=== PATIENT | female | born 1980 | race Caucasian/White ===

== ENCOUNTER 2020-09-18 07:56 | Day surgery (SDC) | payer OTHER, SELFPAY ==
[2020-09-13 07:32] LABS: Hematocrit 43.5 % (37-47); Hemoglobin 14.4 g/dL (12.0-15.0); Mean Corp Hgb Conc 33.1 g/dL (32-36); Mean Corpuscular Hgb 31.3 pg (27.0-32.0); Mean Corpuscular Volume 94.6 fL (81-99); Mean Platelet Vol. 8.5 fl (6.2-12.0); Platelet Count 321 K/mm3 (150-450); RBC Distribution Width CV 12.5 % (11.6-14.6); RBC Distribution Width SD 43.2 fl (35.1-43.9); White Blood Count 7.6 K/mm3 (4.4-11.0)
[2020-09-13 07:50] LABS: Internal QC Validated? YES +Cl - CLEAR BKGD; Pregnancy, Serum, hCG Quali. NEGATIVE Negative
[2020-09-13 08:27] LABS: International Normalized Ratio 0.9; Partial Thromboplast Time 30.5 Seconds (24.1-36.2); Prothrombin Time (Protime)PT. 11.9 SECONDS (11.7-14.9)
--- NOTE | 2020-09-17 13:07 | PCM.HP.BLA ---
History and Physical Date of Admission: 09/18/20 Surgical History and Physical Monisha Isabel, a 39 year old female 2 0 0 0 2, presents for Dx H/S, IUD Removal and Replace IUD; possible bilateral salpingectomy on September 18, 2020 at 10:00. -- IUD Insertion/Removal; Desires Permanent Sterilization -- Time for Mirena to be removed and wishes new IUD inserted. Unable to do in the office as it is impacted. Also desires permanent sterilization. She has considered this form of BC for quite some time. MEDICATIONS HISTORY: Current medications prescribed by our practice are: 1. cephalexin 500 mg capsule, One pill by mouth twice a day Patient is also takin. Mirena 20 mcg/24 hr (5 years) intrauterine device, As Directed ALLERGIES: Ortho evra patch, Gen'l rash on trunk, Ortho Evra and Hives and/or rash Infections - Chicken pox and COVID Illnesses - seasonal allergies Accidents - no injuries of consequence Hospitalizations - Childbirth and see surgery kidney stones; Review of Systems: GENERAL - Denies fever, or chills SKIN - Denies skin changes EYES - Denies visual changes EARS - Denies difficulty hearing NOSE - Denies nasal congestion or bleeding MOUTH - Denies sore throat or difficulty swallowing NECK - Denies pain or swelling RESPIRATORY - Denies shortness of breath or wheezing CARDIOVASCULAR - Denies palpitations or chest pain GASTROINTESTINAL - Denies nausea, vomiting, diarrhea, constipation GENITOURINARY - Denies dysuria, frequency of urination, incontinence of urine MUSCULOSKELETAL - Denies joint or muscle pain NEUROLOGICAL - Denies localized numbness or weakness PSYCHIATRIC - Denies depression or anxiety ENDOCRINE - Denies heat or cold intolerance, weight loss or gain HEMATO-IMMUNOLOGIC - Denies excesive bleeding with cuts SOCIAL HISTORY: Alcohol Use - denies drinking Smoking - denies smoking Diet - balanced Diet Lifestyle - active lifestyle Exercise - active Seat Belt Use - always Employer - [employer] Job Description - telecommunications project manager Illicit Drug Use - denies use of street drugs Sexual Activity - Residence - condo Hours Worked - 40 hours per week Spouse-Sig Other Name - Shamir Spouse-Sig Other Occupation - [employer] Spouse-Sig Other Phone No - [phone] Children Name(s) - Greg Isabel, Ammon Barksdale Chalo 10/2006 Control - Mirena IUD FAMILY HISTORY: Maternal history of pancreatic cancer. Paternal history of DM II. Mother: adenomyosis. MENSTRUAL HISTORY: LMP Known?- Mirena IUDAmount/Duration - 1-2 days spotting, Regularity - Every 3 months, Frequency - 28 days, LMP - 05/29/20, Age Onset Menarche - 12 PAST PREGNANCIES: Total Pregnancies - 2; Full Term Pregnancies - 2; Premature - 0; Abortions, Induced - 0; Abortions, Spontaneous - 0; Ectopics - 0; Multiple Births - 0; Living Children - 2 SURGICAL HISTORY: 1. 10/31/2006 ; Greg Kohler M.D. - Prior 2. 04/14/2000 WISDOM TEETH ; oral surgeon's office - 3. 09/30/2004 ; Greg Kohler M.D. - failure to progress PHYSICAL EXAM BP- 126/88 Sitting, Right arm, large cuff Weight- 239.30398 lbs Height- 63.50 inch BMI:41.83 CONSTITUTIONAL - NAD, well nourished, and well developed SKIN - No rash, lesions, or ulcers HEENT - Normocephalic, PERRLA, EOMI NECK - No nodes, no nuchal rigidity and thyroid normal size and texture LYMPH NODES - Palpation of lymph nodes in neck and groins within normal limits LUNGS - CTA x2 without wheezes, crackles or rales CARDIAC - Regular rate and rhythm without rubs, murmurs, or gallops BREAST - No dominant masses, no tenderness, no axillary adenopathy, no nipple discharge, no skin changes ABDOMEN - Without hepatosplenomegaly, distention, masses, rebound, or guarding; normal bowel sounds; no hernias EXTREMITIES - No edema or calf tenderness NEUROLOGICAL - Cranial nerves II-XII grossly intact PSYCHIATRIC - A and O to time, place, person, mood and affect External Genitial Vagina - non-tender without lesions Urethra/Urethral Meatus - non-tender Bladder - non-tender Vagina - vaginal masters are pink and moist without loss of rugae and no evidence of atropy Cervix - without cervical motion tenderness and has normal size and features without evident lesions Uterus - 5-6 cm in size, mobile and nontender Adnexa - clear without massess or tenderness ASSESSMENT/PLAN: Desires Permanent Sterilization and Replacement of IUD. Discussed RBAs and all questions answered. Plan Possible L/S Matt Salpingectomy, IUD Removal and Insertion with H/S.
[2020-09-18] VITALS (8 sets, daily range): BP systolic 111–128; BP diastolic 78–94; PULSE 61–81; RESP 14–18; TEMP 35.8–37.1; O2SAT 94–100; BMI 39.9
--- NOTE | 2020-09-18 | FALS_PTH ---
PATIENT: RUSSELL HUGHES LOC: [facility] [place] U#:[id number] AGE/SX: 39/F ROOM: RE09/18/[address]: Dr. Greg Kohler MD : 1980 BED: DIS: 09/18/2020 SPEC #: [id number] RECD: 09/19/20 06:20 STATUS: MEHNAZ WELSH #: [id number] CONSTANTINE: 09/18/20 00:[address]: Greg Kohler DEPT: SURGICAL PATHOLOGY RECD BY: Adam Ferrell ENTERED: 09/19/20 08:29 SP TYPE: FALL TUBES OTHR DR: Dr. Robert Wren MD Tissues: Fallopian tube Procedures: Surgery Specimen Level II HEADER OPERATION: Diagnostic hysteroscopy, IUD removal and insertion PRE-OP DIAGNOSIS: Sterilization TISSUE SUBMITTED: Bilateral fallopian tubes MICROSCOPIC DIAGNOSIS Right and left fallopian tubes, bilateral salpingectomies: Bilateral fallopian tubes with no pathologic change. AM:emma 09/20/2020 MICROSCOPIC DESCRIPTION Slides are reviewed. GROSS DESCRIPTION Received in fixative is one container labeled with the patient's name and designated bilateral fallopian tubes. The specimen consists of bilateral fallopian tubes including fimbrial ends measuring 6 cm in length and 0.5 cm in diameter and 5.5 cm in length and 0.5 cm in diameter. The fallopian tubes are not identified as right or left. Sections reveal unremarkable cut surfaces. Electronic Assembly sections are submitted in two cassettes with each cassette containing one fallopian tube. / DANISHA:emma 09/19/20 TC:5 CPT: 82187 x2
[2020-09-18 08:30] LABS: Internal QC Validated? YES +Cl - CLEAR BKGD; Pregnancy, Urine Negative Negative
[2020-09-18] MEDS: Lactated Ringers 1,000 ML 100 ML IV ×2 (08:58→11:00)
--- NOTE | 2020-09-18 09:25 | OP.PCM_ITS ---
Problems Associated Problem List Diagnoses (1) Encounter for female sterilization procedure: (2) Encounter for IUD insertion: (3) IUD strings lost: Report of Operation Date of Procedure: 09/18/20 Pre-Operative Diagnosis: Desires Permanent Sterilization, Impacted IUD Post-Operative Diagnosis: Desires Permanent Sterilization, Impacted IUD, Adhesions Surgery/Procedure Performed:: Diagnostic Hysteroscopy, Mirena IUD Removal, Liletta IUD Insertion, Bilateral Laparoscopic Salpingectomy; Lysis of Adhesions Description of Surgical Findings:: 8 cm endometrial cavity with Mirena IUD pres ent but twisted in the uterus. Dense adhesions of the omentum to the anterior abdominal wall. Normal pelvis otherwise. Surgeon: Greg Kohler Type of Anesthesia: General (Endotracheal) Anesthesiologist: Ramon Jorge Specimen's removed: Mirena IUD, bilateral fallopian tubes Estimated Blood Loss (mL): Minimal Fluids Replaced: Crystalloid Description of Procedure: Surgeon: Greg Kohler MD, FACOG Indications: This is a 39 year old patient who has the above diagnosis. She has considered sterilization for quite some time. She has an Mirena IUD in place that we were unable to remove in the office. She desires this to be removed and a new Liletta IUD be placed. She is aware of the permanent nature of the procedure of a tubal, the failure rate of 1-2%, and the availability of other nonpermanent control options. All questions were answered to consider the patient well-informed. Procedure: The patient was taken to the operating room where after induction of general anesthesia, she was placed in the dorsolithotomy position and prepped and draped in the usual sterile fashion. The bladder was drained of approximately 100 cc of clear yellow urine with a catheter. Anterior cervix was grasped with the tenaculum and dilated to about 4-5 mm. A 3 mm hysteroscope was placed in the uterus of the above findings were noted. The Mirena IUD was identified and brought through the cervix with a grasper. In the course of the procedure approximately 100 cc o saline distending media was used and virtually all of this was recovered. Conn cannula was placed and attention was turned toward the laparoscopic portion of the procedure. Approximately 20 cc of half percent ropivacaine was injected subumbilically, suprapubically and midway between. A 5 mm bladeless trocar was placed subumbilically and intraperitoneal placement confirmed. After CO2 insufflation was complete, a 5 mm bladeless trocar was introduced suprapubically. The above findings were noted. A 5 mm bladeless port was then placed in the right lateral area approximately 10 cm from the midline between these 2 ports. Adhesions were taken down sharply and with the Enseal device. Each fallopian tube was gustavo ntified to its fimbriated end and an Enseal device was used to divide the mesosalpinx to the uterus. Tubes were removed through the lower 5 mm port. The peritoneal cavity and upper abdomen were examined and noted to be normal. Pelvis was copiously irrigated with saline and hemostasis was noted. Photographs were taken. Laparoscopic instruments with as much CO2 gas as possible were removed and incisions were closed with interrupted 4-0 Monocryl suture. Steri-Strips were placed across the incisions. Vaginal instruments were removed. The Liletta was then placed in the usual fashion leaving approximately a 1 to 2 cm segment of string visualized at the cervix. The patient tolerated the procedure well was taken to recovery room in satisfactory condition and sponge instrument and needle counts were all reportedly correct. Estimated blood loss for the case was minimal. There were no apparent complications of the surgery. Specimens to pathology was bilateral tubes. Mirena IUD was discarded. Grafts/Implants Used: Liletta IUD Complications None Admit VTE Documentation VTE Present on Admission: Yes VTE Mechan Device Prophylaxis: SCD's
--- NOTE | 2020-09-18 09:35 | PCM.DC ---
Discharge Instructions Diet Discharge Diet: No restrictions Activity Discharge Activity: May Not Drive (While taking narcotic pain medication) Lifting Restrictions: 25 pounds for 2 weeks Additional Activity Instructions:: Ambulate often the next week after surgery. Nothing in the vagina for 5 days. Dressing / Incision Call your doctor if your incision/area has: Continuous Slow Oozing, Sudden Increased Bleeding, Increased Pain/ Swelling, Increased Redness and Foul Smelling Discharge Call your doctor if you observe: Fever of 101 or Higher, Inability to urinate, Inability to have a bowel movement and Using more than 1 pad per hour Additional Dressing/Incision Instructions:: Okay to remove Steri-Strips in 1 to 2 weeks if they have not fallen off by then. Okay to shower or take a tub bath over Steri-Strips and pat dry. Follow Up Care Please Follow Up With: Greg Kohler MD When: 4 weeks for postop check and IUD check Test Results: Test results from this visit will be discussed in further detail at your follow-up appointment, if applicable. Discharge Plan Admission Primary Reason for Your Visit: IUD Removal, IUD Insertion, Bilateral Tubal Removal Attending Provider: Greg Kohler Primary Care Provider: Robert Wren Discharge Orders/Prescriptions Prescriptions: New oxycodone 5 mg capsule 5 mg PO Q6H PRN (Reason: pain) 7 Days Qty: 7 RF: 0 Continued fexofenadine [Taryn Allergy] 180 mg Tablet 180 mg PO DAILY PRN (Reason: allergies) RF: 0 apple cider vinegar 600 mg Capsule 600 mg PO PRN PRN (Reason: supplement) RF: 0 Referrals / Follow Up: Robert Wren MD [Primary Care Provider] - Disposition Disposition (needs filled in before D/C Order can be placed): Home, self care
[2020-09-18] MEDS: Cefotetan 2 GM in 0.9% NS 100 ML IV (09:54)
[2020-09-18] MEDS: Ropivacaine 0.5% 30 ML Vial (10:14)
[2020-09-18] MEDS: Levonorgestrel IUD (Liletta) 1 EACH INTRA-UTER (11:05)
[2020-09-18] MEDS: oxyCODONE 5 MG Tablet PO (12:45)
== END 2020-09-18 13:53 | disposition home or self-care (01) ==
LOC: SDC 07:57 → AC 07:57
PROVIDERS: Anesthesiology; PCP Family Medicine; Referring Provider Obstetrics & Gynecology; Visit Provider Obstetrics & Gynecology
PROC: 0UDB8ZZ Extraction of Endometrium, Via Natural or Artificial Opening Endoscopic (ICD-10-PCS; CPT 58558; principal; 2020-09-18 09:25)
PROC: (CPT 58661; 2020-09-18 09:25)
DX: Z30.2 Encounter for sterilization (principal); T83.32XA Displacement of intrauterine contraceptive device, initial encounter
CPT/HCPCS: 58300; 58301; 58661; 36415; 81025; 84703; 85027; 85610; 85730; 86850; 86900; 86901; 88302; J7120; C1760; J2405

== ENCOUNTER 2024-01-14 09:27 | Outpatient (CLI) | payer OTHER, SELFPAY ==
[2024-01-14 09:54] VITALS: BP 143/93; PULSE 103; RESP 16; TEMP 36.7; O2SAT 99; BMI 32.8
[2024-01-14 10:33] VITALS: BP 136/87; PULSE 89; RESP 16; TEMP 36.6; O2SAT 99
[2024-01-14 11:33] VITALS: BP 127/85; PULSE 88; RESP 16; TEMP 36.5; O2SAT 99
[2024-01-14 12:20] VITALS: BP 130/75; PULSE 85; RESP 16; TEMP 36.6; O2SAT 99
== END 2024-01-14 23:59 | disposition home or self-care (01) ==
LOC: MEDOUTP 09:28
PROVIDERS: PCP Physician Assistant; Referring Provider Obstetrics & Gynecology; Visit Provider Obstetrics & Gynecology
DX: D62 Acute posthemorrhagic anemia (principal)
CPT/HCPCS: 36415; 36430; 86850; 86900; 86901; 86920; 86922; J7040; P9016; A4216

== ENCOUNTER 2024-01-16 05:22 | Day surgery (SDC) | payer OTHER, SELFPAY ==
[2024-01-09 07:10] LABS: Hemoglobin 7.8 g/dL (12.0-15.0); Mean Corpuscular Hgb 25.1 pg (27.0-32.0); Mean Corpuscular Volume 83.6 fL (81-99); Mean Platelet Vol. 8.6 fl (6.2-12.0); Platelet Count 616 K/mm3 (150-450); RBC Distribution Width CV 14.1 % (11.6-14.6); RBC Distribution Width SD 42.8 fl (35.1-43.9); Red Blood Count 3.11 M/mm3 (4.2-5.4); White Blood Count 9.2 K/mm3 (4.4-11.0)
[2024-01-09 08:14] LABS: Anion Gap 7 (5-15); BUN 19 mg/dL (7-18); Calcium,Total 8.8 mg/dL (8.5-10.1); Chloride 107 mmol/L (98-107); EST Glomerular Filtration Rate 64 mL/min (>60); Est Glom Filt Rate - Afr Amer 78 mL/min (>60); Glucose 100 mg/dL (74-106); Sodium Level 136 mmol/L (136-145)
[2024-01-09 08:19] LABS: Magnesium 1.8 mg/dL (1.6-2.6)
--- NOTE | 2024-01-15 13:07 | HP.PCM.OB_ITS ---
History and Physical Date of Admission: 01/16/24 This is a virtual visit using [employer] Video Visit. It required patient- provider interaction for the medical decision making as documented below. I have communicated my name and active licensure. The patient's identity and physical location were verified at the time of this visit. Either the patient or their legal reimbursement representative has been informed of the risks and benefits of -- and alternatives to -- treatment through a remote evaluation and consents to proceed with the evaluation remotely. Pre-Op History and Physical HPI: The patient is a 43 year old female presenting for pre-operative visit. She is scheduled for TLH, Cystoscopy, for AUB, adenomyosis on 01/15/24. Bleeding so heavy last few days that was bled through three pairs of pants. 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 Pt denies CP, SOB, dizziness. Procedure discussed along with risks, benefits and complications. Other alternatives discussed for management. Consent form signed? To be signed when in office on 12/29/23 PAST MEDICAL HISTORY PAST MEDICAL HISTORY Diagnosis Date ? Allergic rhinitis, cause unspecified also gets wheezy during winter and with pregnancies ? Other and unspecified hyperlipidemia PAST SURGICAL HISTORY PAST SURGICAL HISTORY Procedure Laterality Date ? DELIVERY ONLY 2004,2006 ? INSERTION OF IUD [id number] ? IUD REMOVAL 2020 removed second iud 2021 inserted new one ? REMOVAL OF FALLOPIAN TUBE Bilateral CURRENT MEDICATIONS Current Outpatient Medications Medication Sig Dispense Refill ? norgestimate 0.25 mg-ethinyl estradiol 35 mcg (SPRINTEC) 0.25-35 mg-mcg per tablet Take one active pill every 8 hours until bleeding stops (usually within 48hrs), then one pill every 12 hrs for 2 days, then one pill daily until surgery. 56 tablet 0 ? ondansetron (ZOFRAN) 4 mg tablet Take 1 tablet by mouth every 8 hours as needed for nausea/vomiting. 15 tablet 0 ? Phentermine HCl 37.5 mg tablet Take 1 tablet by mouth daily before breakfast for 90 days. Do not start before November 22, 2023. 90 tablet 0 ? topiramate (TOPAMAX) 50 mg tablet Take 1 tablet by mouth once daily. 90 tablet 3 ? metFORMIN ER (GLUCOPHAGE XR) 750 mg 24 hr tablet Take 2 tablets by mouth daily with dinner. 180 tablet 2 ? vit B complex no.12/niacin,B3, (VITAMIN B COMPLEX NO.12-NIACIN ORAL) Take by mouth. ? cholecalciferol, Vitamin D3, (VITAMIN D3) 1,250 mcg (50,000 unit) cap capsule Take 1 capsule by mouth one time a week. 4 capsule 2 ? albuterol HFA (PROVENTIL HFA, VENTOLIN HFA) 90 mcg/actuation inhaler Inhale 2 Puffs as instructed every 4 hours as needed (for cough, wheezing, chest tightness or shortness of breath. Use with a spacer.). 1 Each 1 ? fexofenadine HCl (DEVYN ORAL) Take by mouth once daily. No current facility-administered medications for this visit. ALLERGIES: Adhesive Tape-Silicones and Iodine PERSONAL HISTORY: SOCIAL HISTORY Social History Tobacco Use ? Smoking status: Never Passive exposure: Never ? Smokeless tobacco: Never Vaping Use ? Vaping status: Never Used Substance Use Topics ? Alcohol use: Yes Comment: social ? Drug use: No FAMILY HISTORY: FAMILY HISTORY FAMILY HISTORY Problem Relation Age of Onset ? Lipids Father ? other (diverticulitis [Other]) Sister ? other (pancreatic CA [Other]) Maternal Grandmother age late 60's ? Diabetes Paternal Grandmother ? Hypertension Paternal Grandfather ? Ischemic Heart Disease Paternal Grandfather age early 50's ? other (leukemia [Other]) Paternal Grandfather age late 40's ? Ischemic Heart Disease Paternal Uncle age early 50's REVIEW OF SYMPTOMS: negative except as noted above PHYSICAL EXAMINATION: VIDEO EXAM: (if completed, performed via video enabled technology) GENERAL: alert and appropriate, in no distress, well-hydrated, well nourished, and happy, smiling, interactive ASSESSMENT: (N93.9) Abnormal uterine bleeding (AUB) (primary encounter diagnosis) (N80.03) Adenomyosis (D25.1) Intramural leiomyoma of uterus PLAN: Total laparoscopic hysterectomy, cystoscopy scheduled for 01/16/24 Pt has been counseled on risks/benefits and alternatives of surgery including but not limited to anesthesia, bleeding, infection, injury to pelvic structures including bowel, bladder, ureters and vessels. Pt wishes to proceed with surgery at this time. Risk of transfusion reviewed. Pre and post op instructions reviewed Will sign consent at office visit on 12/29/23. Continue OCPs taper until surgery to help with AUB There are no Patient Instructions on file for this visit. I spent a total of 30 minutes on the date of the service which included preparing to see the patient, [id number] patient care, completing clinical documentation, obtaining and/or reviewing separately obtained history, performing a medically appropriate examination, and counseling and educating the patient/family/caregiver. Anika Galeano MD
[2024-01-16] VITALS (12 sets, daily range): BP systolic 84–129; BP diastolic 62–90; PULSE 73–93; RESP 16–18; TEMP 36.1–37.1; O2SAT 94–100; BMI 33.7
[2024-01-16 05:52] LABS: Internal QC Validated? YES +Cl - CLEAR BKGD; Pregnancy, Urine Negative Negative
[2024-01-16] MEDS: dexAMETHasone 4 MG/ML Vial 8 MG IV (06:28)
[2024-01-16] MEDS: Magnesium 2 GM for ERAS IV (06:29)
[2024-01-16] MEDS: Lactated Ringers 1,000 ML 40 ML IV (06:33)
[2024-01-16] MEDS: Celecoxib 200 MG Capsule 400 MG PO (06:34)
[2024-01-16] MEDS: Enoxaparin 40 MG/0.4 ML Syringe SC (06:34)
[2024-01-16] MEDS: Acetaminophen 500 MG Tablet 1000 MG PO ×2 (06:35→12:56)
[2024-01-16] MEDS: Phenazopyridine 95 MG Tablet 190 MG PO (06:35)
[2024-01-16] MEDS: Scopolamine 1mg/72hr Patch 1 PATCH TD (06:35)
[2024-01-16] MEDS: Gabapentin 600 MG Tablet PO (06:36)
--- NOTE | 2024-01-16 07:12 | PRE.ANES_ITS ---
ASA Classification* ASA Classification ASA Classification: 3 Assessment & Plan Anesthesia* Anesthesia Assessment Anesthesia Assessment: Discussed sedation and/or anesthesia options, risks, benefits, and alternatives with patient/parents/legal guardian/POA. Questions invited. The patient/parents/legal guardian/POA seems to understand and agrees to proceed with anesthesia plan. Reviewed the physical assessment, medical history, allergy history and patient home medications list prior to surgery/procedure/anesthetic and documented any changes. Performed airway and anesthesia risk assessments. Anesthesia Type Anesthesia Type: General Anesthesia Focused Assessment* Temperature: 98.7 F Pulse Rate: 93 Blood Pressure: 121/87 Respiratory Rate: 16 Pulse Ox: 100 Airway Assessment Mouth opens: >3 cm Mallampati Score: II Focused Labs Anesthesia Preop lab: CBC WBC 9.2 K/mm3 (4.4-11.0) 01/09/24 06:40 RBC 3.11 M/mm3 (4.2-5.4) L 01/09/24 06:40 Hgb 7.8 g/dL (12.0-15.0) L 01/09/24 06:40 Hct 26.0 % (37-47) L 01/09/24 06:40 Plt Count 616 K/mm3 (150-450) H 01/09/24 06:40 CHEMISTRY Potassium 4.0 mmol/L (3.5-5.1) 01/09/24 06:40 Sodium 136 mmol/L (136-145) 01/09/24 06:40 Magnesium 1.8 mg/dL (1.6-2.6) 01/09/24 06:39 BUN 19 mg/dL (7-18) H 01/09/24 06:40 Creatinine 1.00 mg/dL (0.55-1.02) 01/09/24 06:40 Glucose 100 mg/dL (74-106) 01/09/24 06:40 COAG PT 11.9 SECONDS (11.7-14.9) 09/13/20 07:18 Urine Test Negative Negative 01/16/24 05:42 Pre-Assessment Diagnosis/Proposed Procedure Planned Operative Procedure(s): ERAS, Hysterectomy, TLH, Cystoscopy Anesthesia History Anesthesia History - product managent intern: Anesthesia History - product managent intern Hx Hospitalization No 01/07/24 13:23 Any Problems With Anesthesia No 01/07/24 13:23 Cholinesterase deficiency No 01/07/24 13:23 You/Your Family Experience No 01/07/24 13:23 fever (hyperthermia) with Relationship Recent Exposure to Contagious No 01/16/24 06:04 Disease Does patient have nerve No 01/07/24 13:23 stimulator Patient instructed to have device shut off --Does patient have Pacemaker No 01/16/24 06:50 or ICD? When Was Last Pacemaker Check QUESTION #4 FULL TEXT: You/Your Family Experience fever (hyperthermia) with Anesthesia Last Oral Intake Last Oral intake: Last Oral Intake NPO since 19:00 01/16/24 06:50 Meds taken in AM with sips of No 01/16/24 06:50 water? Meds patient instructed to take am of surgery PONV PONV - product managent intern: PONV - product managent intern Female Yes 01/07/24 13:23 HX of Motion Sickness Yes 01/07/24 13:23 HX of N/V After Surgery Yes 01/07/24 13:23 Non-Smoker Yes 01/07/24 13:23 Duration of Surgery greater Yes 01/07/24 13:23 than 60 minutes Number of Risk Factors 5 01/07/24 13:23 PONV Score Severe Risk 01/07/24 13:23 Height & Weight Height & Weight: Anesthesia: Height & Weight Height 5 ft 4 in 01/16/24 06:04 Weight: 89 kg 01/16/24 06:04 Body Mass Index (BMI) 33.7 01/16/24 06:50 Respiratory Assessment Respiratory Assessment - product managent intern: Respiratory Tract Infection Hx - product managent intern Hx Respiratory Tract Infection No 01/07/24 13:23 STOP Sleep Apnea STOP Sleep Apnea - product managent intern: STOP Sleep Apnea - product managent intern Hx Hypertension No 01/14/24 09:54 Hx Sleep Apnea No: wears night otf mouth 01/07/24 13:23 piece CPAP BIPAP Do you snore loudly (louder No 01/07/24 13:23 than talking or can be heard Do you often feel tired/ No 01/07/24 13:23 fatigued/ sleepy during daytime? Has anyone observed you stop No 01/07/24 13:23 breathing during sleep? STOP Results Negative 01/07/24 13:23 QUESTION #5 FULL TEXT : Do you snore loudly (louder than talking or can be heard through closed doors)? Tobacco Use History Tobacco Use History - product managent intern: Tobacco Use History - product managent intern Tobacco Use Smoking Status Never smoker 01/07/24 13:23 Hx Tobacco Use No 01/07/24 13:23 Years Smoking Packs Smoked per Day Smoking Cessation Date was within the last 15 years Hx Smoking Cessation Date Hx Smoking Cessation Counseling Hematologic Medial History Hematologic Hx - product managent intern: Hematologic Medical Hx - communication instructor Hx of Blood Transfusion No 01/07/24 13:23 Hx of Transfusion in last 3 No 01/07/24 13:23 Months Date of Last Transfusion (if within last 3 months) Ever experience any problems No 01/07/24 13:23 with transfusion(s)? Specify any problems Hx of Preganancy in last 3 No 01/07/24 13:23 Months Nurse Filling Out Transfusion VCHRISTIN 01/07/24 13:23 & Questions: Date: 01/07/24 01/07/24 13:23 Time: 13:24 01/07/24 13:23 Patient unable to answer at this time (ie. confused, unrespo /Reproduction History /Reproductive History - product managent intern: /Reproductive Hx- product managent intern Hx Now No 01/07/24 13:23 Gestational Age (in weeks): EDC: Hx Hx Para Hx Section SAB No 01/07/24 13:23 Active Medications Active Medications: Current Medications Generic Name Dose Route Start Last Admin Trade Name Freq PRN Reason Stop Dose Admin Acetaminophen 1,000 mg 01/16/24 07:30 01/16/24 06:35 Acetaminophen 500 Mg Tablet PO 01/16/24 07:31 1,000 mg PREOP ONE Administration Celecoxib 400 mg 01/16/24 07:30 01/16/24 06:34 Celecoxib 200 Mg Capsule PO 01/16/24 07:31 400 mg X1 ONE Administration Dexamethasone Sodium Phosphate 8 mg 01/16/24 07:30 01/16/24 06:28 Dexamethasone 4 Mg/Ml Vial IV 01/16/24 07:31 8 mg X1 ONE Administration Enoxaparin Sodium 40 mg 01/16/24 07:30 01/16/24 06:34 Enoxaparin 40 Mg/0.4 Ml Syringe SC 01/16/24 07:31 40 mg X1 ONE Administration Gabapentin 600 mg 01/16/24 07:30 01/16/24 06:36 Gabapentin 600 Mg Tablet PO 01/16/24 07:31 600 mg PREOP ONE Administration Lactated Ringer's 1,000 mls @ 40 mls/hr 01/16/24 07:30 01/16/24 06:33 IV 40 mls/hr .Q25H ISAIAH Administration Cefazolin Sodium 2 gm/ Sodium 110 mls @ 150 mls/hr 01/16/24 07:30 Chloride IV 01/16/24 08:13 PREOP ONE Lactated Ringer's 1,000 mls @ 70 mls/hr 01/16/24 07:30 IV .[id number] ISAIAH Magnesium Sulfate 2 gm/ 104 mls @ 208 mls/hr 01/16/24 07:30 01/16/24 06:29 Dextrose IV 01/16/24 07:59 208 mls/hr X1 ONE Administration Insulin Human Lispro 0 unit 01/16/24 07:30 Insulin Lispro 100 Unit/Ml Insuln.Pen SC 01/16/24 18:00 Q4H PRN PRN BG >/= 180, SEE PROTOCOL Protocol Ondansetron HCl 4 mg 01/16/24 07:30 Ondansetron 4 Mg/2 Ml Vial IV 01/16/24 07:31 X1 ONE Phenazopyridine HCl 190 mg 01/16/24 07:30 01/16/24 06:35 Phenazopyridine 95 Mg Tablet PO 01/16/24 07:31 190 mg X1 ONE Administration Scopolamine HBr 1 patch 01/16/24 07:30 01/16/24 06:35 Scopolamine 1mg/72hr Patch TD 01/16/24 07:31 1 patch X1 ONE Administration PFSH Medical History Kidney stone Wears glasses Alcohol use Non-smoker Shortness of breath on exertion Home Medications ?Medication ?Instructions ?Recorded ?Last Taken ?Type fexofenadine 180 mg tablet 180 mg PO DAILY allergies 09/13/20 Unknown History (Taryn Allergy) cyanocobalamin (vitamin B-12) 1,500 mcg PO .QWEEKLY 01/07/24 Unknown History 1,000 mcg tablet (Vitamin B-12) ergocalciferol (vitamin D2) 1,250 1,250 mcg PO QWEEK 01/07/24 Unknown History mcg (50,000 unit) capsule (Vitamin D2) metformin 750 mg tablet,extended 1,500 mg PO QPM 01/07/24 Unknown History release 24 hr norgestimate 0.25 mg-ethinyl 1 tab PO DAILY 01/07/24 Unknown History estradiol 35 mcg tablet (Freda) phentermine 37.5 mg tablet 37.5 mg PO DAILY 01/07/24 Unknown History topiramate 50 mg tablet 50 mg PO DAILY 01/07/24 Unknown History Allergy/AdvReac Type Severity Reaction Status Date / Time iodine Allergy Severe RASH Verified 01/14/24 10:07 adhesive tape Allergy Rash Verified 01/14/24 10:07 Surgical History History of hysteroscopy History of Social History Smoking Status: Never smoker Review of Systems (Anesthesia) ROS Narrative System reviewed and no additional complaints, except as documented.
[2024-01-16] MEDS: Cefazolin 2 GM in 0.9% Normal Saline (100mL Bag) 100 ML IV (07:30)
--- NOTE | 2024-01-16 07:30 | HYST_PTH ---
PATIENT: RUSSELL HUGHES LOC: [facility] [place] U#:[id number] AGE/SX: 43/F ROOM: RE01/16/[address]: Dr. Anika Galeano, MDDOB: 1980 BED: DIS: 01/16/2024 SPEC #: [id number] RECD: 01/16/24 10:05 STATUS: MEHNAZ BLAISE #: [id number] CONSTANTINE: 01/16/24 07:[address]: Anika Galeano DEPT: SURGICAL PATHOLOGY RECD BY: Jeimy Hawk ENTERED: 01/16/24 11:25 SP TYPE: HYSTERECT OTHR DR: JYOTI Kuhn Tissues: Uterus, NOS Procedures: Surgery Specimen Level V HEADER OPERATION: Hysterectomy PRE-OP DIAGNOSIS: Abnormal uterine bleeding, adenomyosis, intramural leiomyoma of uterus TISSUE SUBMITTED: Uterus and cervix MICROSCOPIC DIAGNOSIS Uterus and cervix, hysterectomy: Cervix - Chronic inflammation Endometrium - Proliferative endometrium Myometrium - Submucosal, intramural and subserosal leiomyomas (largest measuring 3.0cm in greatest dimension). - Focal superficial adenomyosis. SJ/ 01/19/2024 MICROSCOPIC DESCRIPTION Slides are reviewed. GROSS DESCRIPTION Received in fixative is one container labeled with the patient's name and designated uterus, cervix. The specimen consists of a hysterectomy specimen consisting of uterus and cervix. The uterus with cervix weighs 110 gm and measures 9.5 x 7.0 x 4.5 cm. The serosal surface is bloom glistening. The ectocervical mucosa is unremarkable. The external os is circular in contour. The endocervical canal measures 3.5 cm in length and the endocervical mucosa is bloom glistening unremarkable. The triangular endometrial cavity measures 5.5 cm in length and 2.0 cm in width. The endometrium is bloom, glistening without any mass lesions and measures 0.2 cm in thickness. Sections of the uterine wall reveal multiple intramural, submucosal and subserosal nodular masses. The largest mass measures 3.0cm in greatest dimension. Sections reveal two larger nodular masses that reveal focal area of hemorrhage. Area of necrosis or cystic degeneration are not seen. Uterine wall measures up to 2.0cm in thickness. It Risk Advisor sections are submitted in nine cassettes as follows: 1 - anterior cervix, 2 - posterior cervix, 3 & 4 - anterior uterine wall, 5 & 6 - posterior uterine wall, 7- largest nodular mass, 8- second largest nodular mass, 9- smaller nodular masses SJ:mr 01/16/2024 TC:1 CPT: 00493
[2024-01-16 08:46] LABS: Bedside Glucose 78 mg/dL (74-106)
[2024-01-16] MEDS: Bupivacaine Mpf 0.5% 30 ML VIAL (09:00)
--- NOTE | 2024-01-16 09:31 | OP.PCM_ITS ---
Report of Operation Date of Procedure: 01/16/24 Pre-Operative Diagnosis: AUB, Dysmenorrhea, adenomyosis, acute blood loss anemia Post-Operative Diagnosis: same, endometriosis Surgery/Procedure Performed:: TLH, Cystoscopy Description of Surgical Findings:: multiple endometriotic implants noted on peritoneum Surgeon: Anika Galeano production wood craftsman: Marivel Gibson production wood craftsman: Yesi Martinez Type of Anesthesia: General and Local Special Medications: 0.5% marcaine Specimen's removed: uterus, cervix Estimated Blood Loss (mL): 25cc Fluids Replaced: 1000cc Description of Procedure: Patient take to OR and prepped and draped in usual sterile fashion in dorsal lithotomy position with her arms tucked in a neurologically safe and neutral position. The uterus sounded to 9cm. Clinical Programmer manipulator sutured in place at 3/9;00 position. Attention was turned to the abdomen. All port sites were infiltrated with 0.5% marcaine before the incisions were made. The anterior abdominal wall was tented up with towel clamps and using a direct entry approach a 5 mm intraumbilical port was placed. Intraperitoneal placement was confirmed with the laparoscope and the pneumoperitoneum was created. The patient was placed in Trendelenburg and 5 mm right and left lower quadrant ports were placed under direct visualization. Air seal rapid insufflator was used. The bowel was swept away. Ovaries appeared normal. multiple areas of small endometriotic implants noted on peritoneum noted. previous salpingectomy appreciated. The round ligaments were divided. The anterior peritoneum was dissected down to create the bladder flap with blunt dissection and the LigaSure. The uterine arteries were isolated, clamped, sealed and cut. There was minimal back bleeding from the uterus. Straight bites on uterine artieries performed to drop them off the cuff. The manipulator was used as guide to create colpotomy using monopolar tip of ligasure. once specimen was removed attention was turned to vaginal portion. The specimen was handed off. The posterior cuff and peritoneum were run with 2- 0 vicryl. the cuff was closed with interrupted 0-vicryl figure of 8 sutures. Cystoscopy was performed bilateral ureters were visualized with good efflux. bladder was intact. dubois replaced and sponge stick placed in vagina. The pneumoperitoneum was recreated and the cuff and pedicles were hemostatic. Hemoblast was placed over cuff and pedicles. The skin incisions were closed with skin glue and 3-0 monocryl in the LLQ port site. The vaginal sweep was completed by me. Grafts/Implants Used: none Grafts/Implants Used: none Procedure Start Time: 07:51 Procedure Stop Time: 09:36 Complications none Admit VTE Documentation VTE Present on Admission: Yes VTE Mechan Device Prophylaxis: SCD's VTE Pharm Prophylaxis ordered?: Yes
--- NOTE | 2024-01-16 09:31 | PCM.DC ---
Discharge Instructions Diet Discharge Diet: No restrictions Activity Discharge Activity: May Not Drive (while taking narcotics. may drive when pain controlled. ) and May Shower May shower in (days): 1 May resume sexual activity in: 6-8 weeks Weight Bearing Status: Full weight bearing Lifting Restrictions: 20 Additional Activity Instructions:: NOTHING IN THE VAGINA x 6-8 weeks. Dressing / Incision Call your doctor if your incision/area has: Continuous Slow Oozing, Sudden Increased Bleeding, Increased Pain/ Swelling, Increased Redness, Foul Smelling Discharge and Swelling at the incision site Call your doctor if you observe: Fever of 101 or Higher, Inability to have a bowel movement, Using more than 1 pad per hour and Uncontrolled pain Change Dressing in: leave in place till F/U (you have skin glue over incision sites- do not pick off) Cleanse incision/area with: Soap & Water, Keep Dressing Clean & Dry and - (you may let soap and water run over incision sites and dab dry. ) Follow Up Care Please Follow Up With: Anika Galeano MD When: 2 weeks as scheduled for post op visit Test Results: Test results from this visit will be discussed in further detail at your follow-up appointment, if applicable. Discharge Plan Admission Attending Provider: Anika Galeano Primary Care Provider: Joaquina Frye Instructions Print Language: Salvadorean Discharge Orders/Prescriptions Prescriptions: No Action fexofenadine [Taryn Allergy] 180 mg Tablet 180 mg PO DAILY phentermine 37.5 mg tablet 37.5 mg PO DAILY metformin 750 mg tablet extended release 24 hr 1,500 mg PO QPM topiramate 50 mg tablet 50 mg PO DAILY cyanocobalamin (vitamin B-12) [Vitamin B-12] 1,000 mcg tablet 1,500 mcg PO .QWEEKLY ergocalciferol (vitamin D2) [Vitamin D2] 1,250 mcg (50,000 unit) capsule 1,250 mcg PO QWEEK norgestimate-ethinyl estradiol [Freda] 0.25-35 mg-mcg tablet 1 tab PO DAILY Patient Comments: PLEASE SEE ATTACHED FOR DETAILED DIRECTIONS Referrals / Follow Up: Robert Wren MD [Non-Staff] - Disposition Disposition (needs filled in before D/C Order can be placed): Home, Self Care
--- NOTE | 2024-01-16 09:52 | PCM.POST.ANE ---
Anesthesia: Postop Eval I Current Vital Signs Temperature: 97.4 F Pulse Rate: 89 Blood Pressure: 104/66 Respiratory Rate: 16 Pulse Ox: 95 Assessment Airway patent: Yes Spontaneous unlabored respirations: Yes nausea: No Vomiting: No Anesthesia Complication: No Fluid Hydration Crystalloid volume administer (ml): 1,000 Total IV fluid infused: 1,000 Progress Note Anesthesia document: Postop Eval 1 completed: Yes
[2024-01-16] MEDS: Lactated Ringers @ 70 MLS/HR 70 ML IV (10:00)
--- NOTE | 2024-01-16 13:57 | NURSING ---
Dr Barahona Intosh to room just after pt tried to void, bladder scanned for 158cc. Dr stated to cont' voiding trials. Pt has very minmal pain 2/10 cramping. Taking lg amt of po liquids.
--- NOTE | 2024-01-16 14:33 | POSTOPAN2_ITS ---
Anesthesia Postop Eval I Sum Postop Eval Completion status Anesthesia document: Postop Eval 1 completed: Yes Anesthesia Postop Eval I Summary Anesthesia Postop Eval I Summary: Anesthesia Postop Eval I: Assessment Summary Airway patent Yes 01/16/24 09:52 SUSTAINABLE DEVELOPMENT POLICY ANALYST.CSIR Spontaneous unlabored Yes 01/16/24 09:52 SUSTAINABLE DEVELOPMENT POLICY ANALYST.CSIR respirations Mental status nausea No 01/16/24 09:52 SUSTAINABLE DEVELOPMENT POLICY ANALYST.CSIR Vomiting No 01/16/24 09:52 SUSTAINABLE DEVELOPMENT POLICY ANALYST.CSIR Anesthesia Postop Eval I: Fluid Summary Crystalloid volume administer 1,000 01/16/24 09:52 SUSTAINABLE DEVELOPMENT POLICY ANALYST.CSIR (ml) Colloids volume administered ( ml) Blood Product volume administered (ml) Total IV fluid infused 1,000 01/16/24 09:52 SUSTAINABLE DEVELOPMENT POLICY ANALYST.CSIR Anesthesia Postop Eval I: Summary Notes Anesthesia Complication No 01/16/24 09:52 SUSTAINABLE DEVELOPMENT POLICY ANALYST.CSIR Anesthesia Complication Comment: Post-operative progress note Anesthesia: Postop Eval II Evaluation Mental status: Awake Pain Level: 0 nausea: No Vomiting: No
--- NOTE | 2024-01-16 14:33 | PCM.POSTANE2 ---
Anesthesia Postop Eval I Sum Postop Eval Completion status Anesthesia document: Postop Eval 1 completed: Yes Anesthesia Postop Eval I Summary Anesthesia Postop Eval I Summary: Anesthesia Postop Eval I: Assessment Summary Airway patent Yes 01/16/24 09:52 NFL PLAYER.CSIR Spontaneous unlabored Yes 01/16/24 09:52 NFL PLAYER.CSIR respirations Mental status nausea No 01/16/24 09:52 NFL PLAYER.CSIR Vomiting No 01/16/24 09:52 NFL PLAYER.CSIR Anesthesia Postop Eval I: Fluid Summary Crystalloid volume administer 1,000 01/16/24 09:52 NFL PLAYER.CSIR (ml) Colloids volume administered ( ml) Blood Product volume administered (ml) Total IV fluid infused 1,000 01/16/24 09:52 NFL PLAYER.CSIR Anesthesia Postop Eval I: Summary Notes Anesthesia Complication No 01/16/24 09:52 NFL PLAYER.CSIR Anesthesia Complication Comment: Post-operative progress note Anesthesia: Postop Eval II Evaluation Mental status: Awake Pain Level: 0 nausea: No Vomiting: No
== END 2024-01-16 15:50 | disposition home or self-care (01) ==
LOC: SDC 05:22 → AC 05:23
PROVIDERS: Anesthesiology; PCP Physician Assistant; Referring Provider Obstetrics & Gynecology; Visit Provider Obstetrics & Gynecology
PROC: 0UT94ZZ Resection of Uterus, Percutaneous Endoscopic Approach (ICD-10-PCS; CPT 58570; principal; 2024-01-16 07:10)
DX: D25.1 Intramural leiomyoma of uterus (principal); N93.9 Abnormal uterine and vaginal bleeding, unspecified; E78.5 Hyperlipidemia, unspecified; N94.6 Dysmenorrhea, unspecified; N80.03 Adenomyosis of the uterus; D62 Acute posthemorrhagic anemia; N72 Inflammatory disease of cervix uteri; D25.0 Submucous leiomyoma of uterus; D25.2 Subserosal leiomyoma of uterus; Z79.84 Long term (current) use of oral hypoglycemic drugs; Z79.899 Other long term (current) drug therapy
CPT/HCPCS: 58570; 00840; 36415; 80048; 81025; 82962; 83735; 85027; 86850; 86900; 86901; 88307; J7120; J2405